=== PATIENT | female | born 2000 | race Caucasian/White ===

== ENCOUNTER 2022-04-18 12:13 | Emergency (ER) | payer OTHER ==
[~2022-04-18] VITALS: Ht 160 cm; Wt 65.8 kg
== END 2022-04-18 16:16 | disposition home or self-care (01) ==
LOC: EMR PED 12:13
DX: S99.911A Unspecified injury of right ankle, initial encounter (principal); V93.38XA Fall on board other unpowered watercraft, initial encounter; Y93.18 Activity, surfing, windsurfing and boogie boarding; Y92.832 Beach as the place of occurrence of the external cause